=== PATIENT | female | born 1980 | race Caucasian/White ===

== ENCOUNTER 2017-07-22 07:33 | Emergency (ER) | payer MEDICAID ==
[~2017-07-22] VITALS: Ht 154.9 cm; Wt 47.0 kg
[~2017-07-22 07:33] MED LIST: PHEN-824 PO
[2017-07-22 07:39] VITALS: BP 117/60
[2017-07-22] MEDS ORDERED: CLIN-80 PO (09:07)
== END 2017-07-22 22:16 | disposition home or self-care (01) ==
LOC: ER 07:33
DX: L02.31 Cutaneous abscess of buttock (principal)
CPT/HCPCS: 99283

== ENCOUNTER 2017-08-29 15:32 | Emergency (ER) | payer MEDICAID ==
[~2017-08-29] VITALS: Ht 545.9 cm; Wt 48.2 kg
[~2017-08-29 15:32] MED LIST changes: +CLIN300C85 PO
[2017-08-29 15:33] VITALS: BP 140/88
== END 2017-08-29 17:55 | disposition home or self-care (01) ==
LOC: ER 15:32
DX: F19.10 Other psychoactive substance abuse, uncomplicated (principal); Z79.899 Other long term (current) drug therapy
CPT/HCPCS: 99281

== ENCOUNTER 2017-10-19 16:40 | Emergency (ER) | payer MEDICAID | END 2017-10-19 18:10 | disposition left against medical advice (07) | LOC: ER 16:41 | DX: Z00.00 Encounter for general adult medical examination without abnormal findings (principal); Z53.21 Procedure and treatment not carried out due to patient leaving prior to being seen by health care provider ==

== ENCOUNTER 2017-10-22 13:47 | Emergency (ER) | payer MEDICAID ==
[~2017-10-22] VITALS: Ht 154.9 cm; Wt 51.0 kg
[2017-10-22 13:52] VITALS: BP 114/69
[2017-10-22] MEDS ORDERED: CEPH-572 PO (14:07)
[2017-10-22] MEDS ORDERED: SULF1TAB49 PO (14:07)
== END 2017-10-22 14:20 | disposition home or self-care (01) ==
LOC: ER 13:48
DX: L02.31 Cutaneous abscess of buttock (principal)
CPT/HCPCS: 99283

== ENCOUNTER 2017-10-25 15:26 | Emergency (ER) | payer MEDICAID ==
[~2017-10-25] VITALS: Ht 154.9 cm; Wt 51.8 kg
[~2017-10-25 15:26] MED LIST changes: +CEPH-572 PO; +SULF1TAB49 PO
[2017-10-25] MEDS ORDERED: GABA-532 PO (16:10)
[2017-10-25] MEDS ORDERED: NICO-630 TOP (16:10)
[2017-10-25] MEDS ORDERED: CHLO25CA10 PO (16:10)
[2017-10-25] MEDS ORDERED: chlordiazePOXIDE 25mg capsule PO ONE (16:10)
[2017-10-25] MEDS ORDERED: ONDA8TAB9 PO (16:10)
[2017-10-25 16:42] VITALS: BP 125/89
== END 2017-10-25 16:44 | disposition home or self-care (01) ==
LOC: ER 15:26
DX: F10.20 Alcohol dependence, uncomplicated (principal); F17.200 Nicotine dependence, unspecified, uncomplicated; F15.90 Other stimulant use, unspecified, uncomplicated; Z79.899 Other long term (current) drug therapy; Y90.9 Presence of alcohol in blood, level not specified
CPT/HCPCS: 99283

== ENCOUNTER 2018-01-15 10:15 | Emergency (ER) | payer MEDICAID ==
[~2018-01-15] VITALS: Ht 160 cm; Wt 54.5 kg
[~2018-01-15 10:15] MED LIST changes: -CEPH-572 PO; +CHLO25CA10 PO; +GABA-532 PO; +ONDA8TAB9 PO; -SULF1TAB49 PO
[2018-01-15 10:24] VITALS: BP 112/63
[2018-01-15] MEDS ORDERED: sulfamethoxazole/trimethoprim DS (800/160mg) tablet PO ONE (11:25)
[2018-01-15] MEDS ORDERED: TETanus/Pertussis (Acell)/Diphther VAC/PF (Tdap-Adult) 0.5ml syringe IM ONE (11:25)
[2018-01-15] MEDS ORDERED: cephalexin 500mg capsule PO ONE (11:25)
[2018-01-15] MEDS ORDERED: CEPH-572 PO (11:33)
[2018-01-15] MEDS ORDERED: SULF1TAB49 PO (11:33)
[2018-01-15] MEDS ORDERED: ketorolac tromethamine 15mg/ml inj. IM ONE (11:35)
== END 2018-01-15 12:09 | disposition home or self-care (01) ==
LOC: ER 10:15
DX: L02.416 Cutaneous abscess of left lower limb (principal); L02.415 Cutaneous abscess of right lower limb; L05.01 Pilonidal cyst with abscess; F11.10 Opioid abuse, uncomplicated; F15.90 Other stimulant use, unspecified, uncomplicated; Z72.89 Other problems related to lifestyle; Z79.2 Long term (current) use of antibiotics; Z79.899 Other long term (current) drug therapy
CPT/HCPCS: 90471; 90715; 96372; 99283; J1885

== ENCOUNTER 2019-10-24 23:41 | Emergency (ER) | payer MEDICAID ==
[~2019-10-24] VITALS: Ht 152.4 cm; Wt 52.3 kg
[~2019-10-24 23:41] MED LIST changes: +CLIN-97 PO; -CLIN300C85 PO
[2019-10-25] MEDS ORDERED: cephalexin 250mg capsule PO ONE (00:20)
[2019-10-25] MEDS ORDERED: sulfamethoxazole/trimethoprim DS (800/160mg) tablet PO ONE (00:20)
[2019-10-25] MEDS ORDERED: CEPH500C5 PO (00:20)
[2019-10-25] MEDS ORDERED: BACDS PO (00:20)
[2019-10-25 00:42] VITALS: BP 113/75
== END 2019-10-25 00:47 | disposition home or self-care (01) ==
LOC: ER 23:42
DX: L02.31 Cutaneous abscess of buttock (principal); R11.2 Nausea with vomiting, unspecified; R50.9 Fever, unspecified; R10.30 Lower abdominal pain, unspecified; F17.210 Nicotine dependence, cigarettes, uncomplicated; Z72.89 Other problems related to lifestyle; Z79.2 Long term (current) use of antibiotics; Z79.899 Other long term (current) drug therapy
CPT/HCPCS: 99283

== ENCOUNTER 2020-09-07 08:36 | Emergency (ER) | payer MEDICAID ==
[~2020-09-07] VITALS: Ht 152.4 cm; Wt 62.0 kg
[~2020-09-07 08:36] MED LIST changes: +CEPH-585 PO; +LIDOcaine 1% W/epiNEPHrine 1:100,000 20ml vial ONE
[2020-09-07 09:19] VITALS: BP 105/66
[2020-09-07] MEDS ORDERED: TETanus/Pertussis (Acell)/Diphther VAC/PF (Tdap-Adult) 0.5ml syringe IMVAC ONE (09:25)
[2020-09-07] MEDS ORDERED: HYDROcodone/acetaminophen 5mg/325mg tablet PO ONE (09:35)
[2020-09-07] MEDS ORDERED: HYDR-3965 PO (09:49)
[2020-09-07] MEDS ORDERED: SULF1TAB49 PO (09:49)
== END 2020-09-07 10:55 | disposition home or self-care (01) ==
LOC: ER 08:36
DX: L02.416 Cutaneous abscess of left lower limb (principal); Z72.89 Other problems related to lifestyle; Z79.2 Long term (current) use of antibiotics; Z20.3 Contact with and (suspected) exposure to rabies; Z79.899 Other long term (current) drug therapy
CPT/HCPCS: 10060; 90471; 90715; 99283

== ENCOUNTER 2020-09-09 16:33 | Emergency (ER) | payer MEDICAID ==
[~2020-09-09] VITALS: Ht 152.4 cm; Wt 58.5 kg
[~2020-09-09 16:33] MED LIST changes: +HYDR-3965 PO; -LIDOcaine 1% W/epiNEPHrine 1:100,000 20ml vial ONE; +SULF1TAB49 PO
[2020-09-09 17:26] VITALS: BP 118/57
== END 2020-09-09 17:28 | disposition home or self-care (01) ==
LOC: ER 16:34
DX: L02.01 Cutaneous abscess of face (principal); L02.416 Cutaneous abscess of left lower limb; F15.90 Other stimulant use, unspecified, uncomplicated; Z72.89 Other problems related to lifestyle; Z79.2 Long term (current) use of antibiotics; Z79.899 Other long term (current) drug therapy
CPT/HCPCS: 10060; 99282

== ENCOUNTER 2021-02-07 18:26 | Emergency (ER) | payer MEDICAID ==
[~2021-02-07 18:26] MED LIST changes: -CEPH-585 PO; -HYDR-3965 PO; -SULF1TAB49 PO
== END 2021-02-07 21:09 | disposition left against medical advice (07) ==
LOC: ER 18:26
DX: Z53.21 Procedure and treatment not carried out due to patient leaving prior to being seen by health care provider (principal)

== ENCOUNTER 2021-11-09 01:06 | Emergency (ER) | payer MEDICAID ==
[~2021-11-09] VITALS: Ht 152.4 cm; Wt 62.2 kg
[2021-11-09 01:08] VITALS: BP 125/71
[2021-11-09] MEDS ORDERED: SULF1TAB49 PO (01:36)
[2021-11-09] MEDS ORDERED: sulfamethoxazole/trimethoprim DS (800/160mg) tablet PO ONE (01:40)
== END 2021-11-09 02:45 | disposition home or self-care (01) ==
LOC: ER 01:07
DX: L02.416 Cutaneous abscess of left lower limb (principal); R50.9 Fever, unspecified; F17.200 Nicotine dependence, unspecified, uncomplicated; F15.90 Other stimulant use, unspecified, uncomplicated; Z72.89 Other problems related to lifestyle; Z79.2 Long term (current) use of antibiotics; Z79.899 Other long term (current) drug therapy
CPT/HCPCS: 99283

== ENCOUNTER 2022-10-26 10:28 | Emergency (ER) | payer MEDICAID ==
[~2022-10-26] VITALS: Ht 152.4 cm; Wt 66.2 kg
[2022-10-26 10:32] VITALS: BP 118/67; PULSE 86; RESP 16; TEMP 98.7; O2SAT 98
[2022-10-26] MEDS ORDERED: POLOS EACHEYE (11:56)
--- NOTE | 2022-10-27 10:56 | NUR ---
PATIENT CALLED AND STATES THAT HE LOST HIS EYE DROPS THAT WERE PRESCRIBED YESTERDAY. PATIENT REQUESTS REFILL FOR EYE DROPS-RX CALLED TO [facility] ON [address]
== END 2022-10-26 12:06 | disposition home or self-care (01) ==
LOC: ER 10:28
DX: H10.89 Other conjunctivitis (principal)
CPT/HCPCS: 99283

== ENCOUNTER 2023-06-13 14:03 | Emergency (ER) | payer MEDICAID ==
[~2023-06-13] VITALS: Ht 152.4 cm; Wt 68.8 kg
[2023-06-13 14:25] VITALS: BP 126/69; PULSE 108; RESP 16; TEMP 98.3; O2SAT 98
[2023-06-13] MEDS ORDERED: IBUP-1984 PO (14:50)
[2023-06-13] MEDS ORDERED: CLIN150C2 PO (14:50)
== END 2023-06-13 14:58 | disposition home or self-care (01) ==
LOC: ER 14:03
DX: K04.7 Periapical abscess without sinus (principal); F15.90 Other stimulant use, unspecified, uncomplicated; Z79.899 Other long term (current) drug therapy; Z79.2 Long term (current) use of antibiotics
CPT/HCPCS: 99283

== ENCOUNTER 2023-09-06 05:40 | Emergency (ER) | payer MEDICAID ==
[~2023-09-06] VITALS: Ht 152.4 cm; Wt 65.9 kg
[2023-09-06 06:10] VITALS: PULSE 101
[2023-09-06 06:11] VITALS: TEMP 98.4
[2023-09-06] MEDS: LIDOcaine 1% W/epiNEPHrine 1:100,000 20ml vial IJ ONE (06:52)
[2023-09-06] MEDS ORDERED: SULF1TAB49 PO (07:18)
[2023-09-06] MEDS: sulfamethoxazole/trimethoprim DS (800/160mg) tablet PO ONE (07:25)
[2023-09-06 07:26] VITALS: BP 118/67; RESP 15; O2SAT 97
[2023-09-08] MEDS ORDERED: CEPH-585 PO (02:44)
== END 2023-09-06 07:30 | disposition home or self-care (01) ==
LOC: ER 05:41
DX: L02.31 Cutaneous abscess of buttock (principal); F17.200 Nicotine dependence, unspecified, uncomplicated; F10.20 Alcohol dependence, uncomplicated; F15.90 Other stimulant use, unspecified, uncomplicated; Z79.2 Long term (current) use of antibiotics; Z88.8 Allergy status to other drugs, medicaments and biological substances; Z79.899 Other long term (current) drug therapy
CPT/HCPCS: 10160; 87070; 87075; 87077; 87186; 99284; J7030; A6449

== ENCOUNTER 2023-09-09 02:37 | Inpatient (IN) | payer MEDICAID ==
[~2023-09-09] VITALS: Ht 152.4 cm; Wt 68.0 kg
[~2023-09-09 02:37] MED LIST changes: +CEPH-585 PO; +SULF1TAB49 PO
[2023-09-09] MEDS ORDERED: CEPH-585 PO (03:07)
[2023-09-09] MEDS ORDERED: IBUP-1986 PO (03:07)
[2023-09-09] MEDS: morphine 2 MG/ML inj. syringe IV PRN ×2 (05:45→10:38)
[2023-09-09] MEDS: piperacillin/tazo 3.375gm/50ml 50 ML IV ONE (05:46)
[2023-09-09] MEDS ORDERED: iohexol 300mg/ml 100ml inj. ONE (05:51)
[2023-09-09 06:14] LABS: ALBUMIN 2.7 G/DL (3.4-5.0); ANION GAP 9 (8-16); BLOOD UREA NITROGEN 12 MG/DL (7-18); BUN/CREATININE RATIO 19.4 (10.0-20.0); CALCIUM 7.9 MG/DL (8.5-10.1); CHLORIDE 103 MMOL/L (99-107); CREATININE 0.62 MG/DL (0.40-0.90); GLUCOSE 94 MG/DL (70-104); POTASSIUM 3.2 MMOL/L (3.5-5.1); SODIUM 140 MMOL/L (135-145); TOTAL CARBON DIOXIDE 28.4 MMOL/L (24-32); eCRCL 87 ML/MIN; eGFR > 90 ML/MIN
[2023-09-09 06:15] LABS: BASOPHILS % (AUTO) 0.3 % (0-1); EOSINOPHILS # (AUTO) 0.2 X10'3 (0-0.9); HEMATOCRIT 31.6 % (35.0-45.0); HEMOGLOBIN 10.7 g/dl (12.0-16.0); LYMPHOCYTES # (AUTO) 1.7 X10'3 (1.1-4.8); LYMPHOCYTES % (AUTO) 16.5 % (21-51); MEAN CORPUSCULAR HEMOGLOBIN 29.3 PG (27.0-31.0); MEAN CORPUSCULAR HGB CONC 33.8 g/dL (33.0-36.5); MEAN CORPUSCULAR VOLUME 86.7 FL (78-98); MEAN PLATELET VOLUME 7.6 FL (7.4-10.4); MONOCYTES # (AUTO) 1.1 X10'3 (0-0.9); MONOCYTES % (AUTO) 10.1 % (2-12); NEUTROPHILS # (AUTO) 7.5 X10'3 (1.8-7.7); NEUTROPHILS % (AUTO) 71.1 % (42-75); PLATELET COUNT 241 X10'3 (140-440); RED BLOOD COUNT 3.64 X10'6 (4.20-5.60); WHITE BLOOD COUNT 10.5 X10'3 (4.5-11.0)
[2023-09-09] MEDS: normal saline 1000ML IV soln IVB ONE (06:38)
[2023-09-09] MEDS ORDERED: potassium Cl 20 mEq SR tablet PO PRN ×2 (07:25)
[2023-09-09] MEDS ORDERED: magnesium hydroxide 30ml (MOM) UD suspension PO PRN (07:25)
[2023-09-09] MEDS ORDERED: magnesium Cl slow-release 64mg tablet PO PRN (07:25)
[2023-09-09] MEDS ORDERED: ondansetron/PF 4mg/2ml inj IV PRN (07:25)
[2023-09-09] MEDS ORDERED: mag hydrox/Alum hydrox/simeth 30ml oral suspension PO PRN (07:25)
[2023-09-09] MEDS ORDERED: magnesium sulf-water 4G/100mL 100 ML IV PRN (07:25)
[2023-09-09] MEDS ORDERED: magnesium sulf-water 2g/50mL 50 ML IV PRN (07:25)
[2023-09-09] MEDS ORDERED: HYDROmorphone inj. 0.5 MG/0.5 ML DISP.SYRIN IV PRN (07:25)
[2023-09-09] MEDS ORDERED: acetaminophen 325mg tablet PO PRN (07:25)
[2023-09-09] MEDS: K and/or MAG REPLACEMENT MC SCH (07:35)
[2023-09-09] MEDS: heparin, porcine 5000 units/ml vial SQ SCH (07:56)
[2023-09-09] MEDS: normal saline 1000ml 1,000 ML IV SCH (07:56)
[2023-09-09] MEDS: docusate sod 100mg capsule PO SCH (07:56)
[2023-09-09] MEDS: potassium Cl 40MEQ/1/2NS 520ml 520 ML IV PRN (07:57)
[2023-09-09 08:12] LABS: MAGNESIUM 1.8 MG/DL (1.5-2.4); POTASSIUM 3.4 MMOL/L (3.5-5.1)
[2023-09-09 08:36] LABS: HCG SERUM QL NEGATIVE
[2023-09-09 09:45] VITALS: RESP 16; O2SAT 95
[2023-09-09] MEDS ORDERED: vancomycin/NS 1 GM ADD-VANTAGE 250 ML IV ONE (09:45)
[2023-09-09 10:00] VITALS: BP 96/40; PULSE 72; RESP 16; TEMP 98.1; O2SAT 95
[2023-09-09] MEDS ORDERED: VANCOmycin 1250MG/NS 250ml Bag 250 ML IV SCH (10:00)
[2023-09-09] MEDS ORDERED: VANCOMYCIN LEVEL IV ONE (10:30)
[2023-09-09 11:39] LABS: C-REACTIVE PROTEIN 9.44 MG/DL (0.0-0.5)
[2023-09-09] MEDS: vancomycin/NS 1 GM ADD-VANTAGE 250 ML IV SCH (12:16)
[2023-09-09] MEDS ORDERED: GADOTERATE MEGLUMINE 7.5 MMOL/15 ML VIAL IV ONE (17:00)
[2023-09-09 18:00] VITALS: BP 93/44; PULSE 88; RESP 16; TEMP 98.1; O2SAT 96
[2023-09-09 20:00] VITALS: RESP 17; O2SAT 93
[2023-09-09] MEDS ORDERED: vancomycin/NS 1 GM ADD-VANTAGE 250 ML IV SCH (20:00)
[2023-09-09 22:00] VITALS: BP 92/45; PULSE 90; RESP 13; TEMP 97.7; O2SAT 100
[2023-09-09] MEDS: LORazepam 2 mg/ml vial IV ONE (23:08)
[2023-09-09] MEDS: nicotine 21mg patch - 24 hr TD SCH (23:09)
[2023-09-10] VITALS (21 sets, daily range): BP systolic 89–105; BP diastolic 46–55; PULSE 72–91; RESP 13–23; TEMP 96.9–97.8; O2SAT 95–100
[2023-09-10 06:08] LABS: BASOPHILS % (AUTO) 0.2 % (0-1); EOSINOPHILS # (AUTO) 0.2 X10'3 (0-0.9); EOSINOPHILS % (AUTO) 1.9 % (0-6); HEMATOCRIT 30.4 % (35.0-45.0); HEMOGLOBIN 10.2 g/dl (12.0-16.0); LYMPHOCYTES # (AUTO) 1.1 X10'3 (1.1-4.8); LYMPHOCYTES % (AUTO) 12.6 % (21-51); MEAN CORPUSCULAR HEMOGLOBIN 29.2 PG (27.0-31.0); MEAN CORPUSCULAR HGB CONC 33.7 g/dL (33.0-36.5); MEAN CORPUSCULAR VOLUME 86.7 FL (78-98); MEAN PLATELET VOLUME 7.3 FL (7.4-10.4); MONOCYTES # (AUTO) 0.9 X10'3 (0-0.9); MONOCYTES % (AUTO) 9.9 % (2-12); NEUTROPHILS # (AUTO) 6.6 X10'3 (1.8-7.7); NEUTROPHILS % (AUTO) 75.4 % (42-75); PLATELET COUNT 245 X10'3 (140-440); RED CELL DISTRIBUTION WIDTH 14.1 % (11.5-14.5); WHITE BLOOD COUNT 8.8 X10'3 (4.5-11.0)
[2023-09-10 06:24] LABS: ALANINE AMINOTRANSFERASE 18 U/L (12-78); ALBUMIN 2.4 G/DL (3.4-5.0); ALBUMIN/GLOBULIN RATIO 0.7 (1.1-1.5); ALKALINE PHOSPHATASE 63 IU/L (46-116); ANION GAP 8 (8-16); ASPARTATE AMINO TRANSFERASE 12 U/L (10-37); BILIRUBIN,TOTAL 0.3 MG/DL (0.1-1.0); BLOOD UREA NITROGEN 5 MG/DL (7-18); CALCIUM 8.2 MG/DL (8.5-10.1); CHLORIDE 105 MMOL/L (99-107); GLUCOSE 103 MG/DL (70-104); MAGNESIUM 1.8 MG/DL (1.5-2.4); POTASSIUM 3.6 MMOL/L (3.5-5.1); SODIUM 139 MMOL/L (135-145); TOTAL CARBON DIOXIDE 26.3 MMOL/L (24-32); TOTAL PROTEIN 5.8 G/DL (6.4-8.2); eCRCL 107 ML/MIN; eGFR > 90 ML/MIN
[2023-09-10] MEDS: VANCOMYCIN LEVEL IV ONE (10:30)
[2023-09-10] MEDS: ringers solution, lacted 1,000 ML IV ONE (10:39)
[2023-09-10 12:09] LABS: PROTHROMBIN TIME 11.2 SECONDS (9.0-12.0)
[2023-09-10] MEDS: morphine 2 MG/ML inj. syringe IV ONE (12:21)
[2023-09-10] MEDS: dextrose 50%-water 50ml dispensing syringe IV ONE (12:42)
[2023-09-10] MEDS: ringers solution, lacted 1,000 ML IV SCH (13:45)
[2023-09-10] MEDS ORDERED: morphine 2 MG/ML inj. syringe IV PRN (13:45)
[2023-09-10] MEDS ORDERED: ondansetron/PF 4mg/2ml inj IV PRN (13:45)
[2023-09-10] MEDS ORDERED: proCHLORperazine 10 MG/2 ml inj IV PRN (13:45)
[2023-09-10] MEDS ORDERED: labetalol 20mg/4ml (5mg/ml) syringe IV PRN (13:45)
[2023-09-10] MEDS ORDERED: meperidine/PF 25mg/ml syringe IV PRN (13:45)
[2023-09-10] MEDS ORDERED: HYDROmorphone/PF 0.2 MG/ML SYRINGE IV PRN ×2 (13:45)
[2023-09-10] MEDS ORDERED: hydrALAZINE 20mg/ml inj. IV PRN (13:45)
[2023-09-10] MEDS ORDERED: morphine 4 MG/ML inj SYRINge IV PRN (13:45)
[2023-09-10] MEDS ORDERED: sevoflurane 250ml liquid IH ONE (13:55)
[2023-09-10] MEDS ORDERED: midazolam 1 mg/ML 2ml injection ONE (14:02)
[2023-09-10] MEDS ORDERED: propofol inj 20 ML IV ONE (14:12)
[2023-09-10] MEDS ORDERED: LIDOcaine 2% (20mg/ml) 5ml vial ONE (14:12)
[2023-09-10] MEDS ORDERED: fentaNYL /PF 50mcg/ml 5ml ampule ONE (14:12)
[2023-09-10] MEDS ORDERED: ondansetron/PF 4mg/2ml inj ONE (14:12)
[2023-09-10] MEDS ORDERED: dexamethasone sod phosphate 4mg/ml inj. ONE (14:12)
[2023-09-10] MEDS: acetaminophen 1,000mg/100ml IV 100 ML IV ONE (14:49)
[2023-09-10] MEDS: HYDROcodone/acetaminophen 5mg/325mg tablet PO PRN (17:19)
[2023-09-10] MEDS ORDERED: VANCOMYCIN LEVEL IV ONE (21:30)
[2023-09-10] MEDS: LORazepam 0.5 MG tablet PO PRN (21:59)
[2023-09-10] MEDS: VANCOmycin 1250MG/NS 250ml Bag 250 ML IV SCH (22:00)
[2023-09-10] MEDS: nicotine 21mg patch - 24 hr TD SCH (22:09)
[2023-09-11 02:00] VITALS: BP 100/54; PULSE 75; RESP 17; TEMP 97.5; O2SAT 98
[2023-09-11 05:21] VITALS: BP 107/57; PULSE 72; RESP 18; O2SAT 96
[2023-09-11 06:00] VITALS: BP 96/46; PULSE 85; RESP 18; TEMP 96.8; O2SAT 96
[2023-09-11 06:28] LABS: ALANINE AMINOTRANSFERASE 18 U/L (12-78); ALBUMIN 2.4 G/DL (3.4-5.0); ALBUMIN/GLOBULIN RATIO 0.6 (1.1-1.5); ALKALINE PHOSPHATASE 68 IU/L (46-116); ANION GAP 10 (8-16); ASPARTATE AMINO TRANSFERASE 13 U/L (10-37); BILIRUBIN,TOTAL 0.2 MG/DL (0.1-1.0); BLOOD UREA NITROGEN 6 MG/DL (7-18); BUN/CREATININE RATIO 11.1 (10.0-20.0); CALCIUM 8.7 MG/DL (8.5-10.1); CHLORIDE 108 MMOL/L (99-107); CREATININE 0.54 MG/DL (0.40-0.90); GLUCOSE 156 MG/DL (70-104); MAGNESIUM 1.9 MG/DL (1.5-2.4); POTASSIUM 3.8 MMOL/L (3.5-5.1); SODIUM 142 MMOL/L (135-145); TOTAL CARBON DIOXIDE 24.4 MMOL/L (24-32); TOTAL PROTEIN 6.2 G/DL (6.4-8.2); eCRCL 99 ML/MIN; eGFR > 90 ML/MIN
[2023-09-11 09:54] VITALS: BP 91/48; PULSE 90
[2023-09-11 10:00] VITALS: BP 91/48; PULSE 90; RESP 16; TEMP 97.5
[2023-09-11 10:31] LABS: BASOPHILS % (AUTO) 0.4 % (0-1); EOSINOPHILS % (AUTO) 0.2 % (0-6); HEMATOCRIT 29.9 % (35.0-45.0); HEMOGLOBIN 10.1 g/dl (12.0-16.0); LYMPHOCYTES # (AUTO) 1.4 X10'3 (1.1-4.8); LYMPHOCYTES % (AUTO) 13.1 % (21-51); MEAN CORPUSCULAR HEMOGLOBIN 29.1 PG (27.0-31.0); MEAN CORPUSCULAR HGB CONC 33.6 g/dL (33.0-36.5); MEAN CORPUSCULAR VOLUME 86.6 FL (78-98); MEAN PLATELET VOLUME 7.3 FL (7.4-10.4); MONOCYTES # (AUTO) 0.6 X10'3 (0-0.9); MONOCYTES % (AUTO) 5.6 % (2-12); NEUTROPHILS # (AUTO) 8.5 X10'3 (1.8-7.7); NEUTROPHILS % (AUTO) 80.7 % (42-75); PLATELET COUNT 333 X10'3 (140-440); RED BLOOD COUNT 3.45 X10'6 (4.20-5.60); RED CELL DISTRIBUTION WIDTH 13.8 % (11.5-14.5); WHITE BLOOD COUNT 10.6 X10'3 (4.5-11.0)
[2023-09-11] MEDS ORDERED: HYDROcodone/acetaminophen 10/325mg tab PO PRN (10:50)
[2023-09-11] MEDS ORDERED: HYDR-3973 PO (11:37)
[2023-09-11] MEDS ORDERED: LINE600T11 PO (12:09)
[2023-09-11] MEDS ORDERED: linezolid 600mg tablet PO ONE (12:35)
[2023-09-11] MEDS ORDERED: VANCOMYCIN LEVEL IV ONE (18:30)
== END 2023-09-11 12:20 | disposition left against medical advice (07) | DRG 364 ==
LOC: ER 02:37 → ED HOLD 08:25 → EDBEDREQ 08:36 → EDBEDREQTM 08:43 → EDBEDREQSVC 08:43 → ORTHO 4S 09:35
PROVIDERS: ADMIT Internal Medicine; ATTEND Internal Medicine
PROC: BW2110Z Computerized Tomography (CT Scan) of Abdomen and Pelvis using Low Osmolar Contrast, Unenhanced and Enhanced (ICD-10-PCS; 2023-09-09)
PROC: 0J9L0ZZ Drainage of Right Upper Leg Subcutaneous Tissue and Fascia, Open Approach (ICD-10-PCS; principal; 2023-09-10 13:53)
DX: L02.415 Cutaneous abscess of right lower limb (principal); I95.9 Hypotension, unspecified; E87.6 Hypokalemia; L03.115 Cellulitis of right lower limb; F11.20 Opioid dependence, uncomplicated; F17.210 Nicotine dependence, cigarettes, uncomplicated; F12.10 Cannabis abuse, uncomplicated; G43.909 Migraine, unspecified, not intractable, without status migrainosus; Z53.29 Procedure and treatment not carried out because of patient's decision for other reasons; Z71.6 Tobacco abuse counseling
CPT/HCPCS: 36415; 72193; 72197; 80048; 80053; 80202; 82948; 83605; 83735; 84132; 84703; 85025; 85610; 85651; 86140; 87040; 87070; 87075; 87077; 87081; 87102; 87186; 93005; 96365; 96367; 96375; 99285; A4618; A6258; A6407; A6449; A7000; A9575; G0378; J0131; J1100; J1644; J2060; J2250; J2270; J2405; J2543; J2704; J3010; J3370; J3480; J3490; J7030; J7040; J7120; Q9967